=== PATIENT | female | born 1975 | race Two or more races ===

== ENCOUNTER → 2023-02-07 20:48 | Emergency (ER) | payer MEDICAID, OTHER | END | disposition left against medical advice (07) | LOC: ER 20:48 | DX: Z77.098 Contact with and (suspected) exposure to other hazardous, chiefly nonmedicinal, chemicals (principal); Z53.21 Procedure and treatment not carried out due to patient leaving prior to being seen by health care provider ==

== ENCOUNTER 2023-03-13 13:39 | Emergency (ER) | payer MEDICAID ==
[~2023-03-13] VITALS: Ht 167.6 cm; Wt 113.9 kg
[2023-03-13 13:43] VITALS: BP 159/99; RESP 20; O2SAT 96
[2023-03-13 13:52] VITALS: PULSE 89
== END 2023-03-13 14:51 | disposition left against medical advice (07) ==
LOC: ER 13:39
DX: M79.672 Pain in left foot (principal); M79.671 Pain in right foot; R42 Dizziness and giddiness; R63.1 Polydipsia; Z53.21 Procedure and treatment not carried out due to patient leaving prior to being seen by health care provider
CPT/HCPCS: 82962; 93005

== ENCOUNTER 2023-04-17 10:30 | Emergency (ER) | payer MEDICAID ==
[~2023-04-17] VITALS: Ht 167.6 cm; Wt 118.6 kg
[2023-04-17 10:35] VITALS: BP 188/72; PULSE 96; RESP 18; O2SAT 97
== END 2023-04-17 10:53 | disposition left against medical advice (07) ==
LOC: ER 10:30
DX: F41.9 Anxiety disorder, unspecified (principal); Z53.21 Procedure and treatment not carried out due to patient leaving prior to being seen by health care provider